=== PATIENT | female | born 1970 | race Caucasian/White ===

== ENCOUNTER 2024-03-30 08:00 | Outpatient (RCR) | payer OTHER ==
[2024-03-25 08:25] VITALS: BP 168/69; PULSE 70; TEMP 97.9
--- NOTE | 2024-03-25 09:09 | NUR ---
IV WAS EXTREMELY DIFFICULT TO ACQUIRE ON PATIENT. THIS RN ATTEMPTED TWICE AND ANTONY WITH AIVS ATTEMPTED SEVERAL TIMES AFTER. IV WAS SUCCESSFULLY PLACED IN LEFT HAND AND PT REQUESTED THAT THIS RN REACH OUT TO DR. SALINAS'S OFFICE TO SEE IF INFUSION DOSAGES CAN BE INCREASED SO APPOINTMENT FREQUENCY CAN BE DECREASED. DR. SALINAS'S OFFICE WAS CONTACTED AND THIS RN IS AWAITING RESPONSE. PT WAS OBSERVED FOR 20 MINUTES FOLLOWING INFUSION TO ENSURE THAT NO ALLERGIC OR ADVERSE REACTION OCCURRED.
[2024-03-27 08:36] VITALS: BP 144/73; PULSE 72; TEMP 98.3
--- NOTE | 2024-03-27 09:02 | NUR ---
Pt tolerated infusion without issue. IV DC'd, site wrapped with coban. She exits dept with steady gait.
[~2024-03-30] VITALS: Ht 157.5 cm; Wt 75.0 kg
[~2024-03-30 08:00] MED LIST: BENADRYL25 M2 PO; CEPHALEXIN500 M1 PO; Iron Sucrose 200 MG in NS 100 ML Over 15 minutes IV SCH
[2024-03-30 08:24] VITALS: BP 153/66; PULSE 70; TEMP 98
== END 2024-03-31 09:00 | disposition home or self-care (01) ==
LOC: EUO 08:00
DX: E61.1 Iron deficiency (principal)
CPT/HCPCS: J1756